=== PATIENT | female | born 1995 | race Caucasian/White ===

== ENCOUNTER 2019-02-25 16:16 | Emergency (ER) | payer SELFPAY ==
[2019-02-25 16:51] VITALS: RESP 18; O2SAT 98
--- NOTE | 2019-02-25 17:37 | C.PDOC ---
History Of Present Illness 23 year old female presents to the ED for evaluation. Patient states she has been noticing blood intermittently for three months after having bowel movement. Patient states symptoms occur once every other week. When she wipes, she noticed a few drops of bright red blood on the tissue paper. Patient states her last bowel movement was today and she did not notice any blood. The last time she noticed blood was four days ago. Patient denies hard stools, straining, constipation, urinary symptoms, nausea, vomiting, abdominal pain, or history of hemorrhoids. Chief Complaint (Nursing): GI Problem History Per: Patient History/Exam Limitations: no limitations Onset/Duration Of Symptoms: Days Current Symptoms Are (Timing): Still Present Additional History Per: Patient Past Medical History Reviewed: Historical Data, Nursing Documentation, Vital Signs Vital Signs: Last Vital Signs Temp 99.4 F 02/25/19 16:48 Pulse 84 02/25/19 16:48 Resp 18 02/25/19 16:48 BP 129/84 02/25/19 16:48 Pulse Ox 98 02/25/19 16:48 - Medical History PMH: No Chronic Diseases Surgical History: No Surg Hx Family History: States: Unknown Family Hx - Social History Hx Tobacco Use: Yes (1-2 cigarettes) Hx Alcohol Use: No Hx Substance Use: No - Immunization History Hx Tetanus Toxoid Vaccination: No Hx Influenza Vaccination: No Hx Pneumococcal Vaccination: No Review Of Systems Constitutional: Negative for: Fever, Chills Cardiovascular: Negative for: Chest Pain Respiratory: Negative for: Shortness of Breath Gastrointestinal: Positive for: Hematochezia. Negative for: Nausea, Vomiting, Abdominal Pain, Diarrhea Genitourinary: Negative for: Dysuria, Frequency, Hematuria, Vaginal Discharge, Vaginal Bleeding, Rash Skin: Negative for: Bruising Neurological: Negative for: Headache, Dizziness Physical Exam - Physical Exam Appears: Non-toxic, No Acute Distress Skin: Normal Color, Warm, Dry Head: Atraumatic, Normacephalic Eye(s): bilateral: Normal Inspection Oral Mucosa: Moist Chest: Symmetrical Cardiovascular: Rhythm Regular Respiratory: Normal Breath Sounds, No Wheezing Gastrointestinal/Abdominal: Soft, No Tenderness Rectal: Hemorrhoids (external, at 7 o'clock position ), No Other (erythema, gross edema, fissures or active bleeding ) Back: No CVA Tenderness Extremity: Normal ROM Extremity: Bilateral: Atraumatic, Normal Color And Temperature, Normal ROM Neurological/Psych: Oriented x3, Normal Speech, Normal Cognition, Normal Motor, Normal Sensation ED Course And Treatment O2 Sat by Pulse Oximetry: 98 (on RA ) Pulse Ox Interpretation: Normal Disposition Counseled Patient/Family Regarding: Diagnosis, Need For Followup, Rx Given - Disposition Referrals: Spencer Tafoya MD [Staff Provider] - Disposition: HOME/ ROUTINE Disposition Time: 17:34 Condition: STABLE Additional Instructions: Use preparation h daily at night ice packs, cold compress, witch valarie extract, and high fiber diet follow up in clinic if symptoms persist return to ED if symptoms worsen Prescriptions: Phenyleph/Mineral Oil/Petrolat [Preparation H 0.25%-3%] 1 oin TP HS #1 tube Instructions: Hemorrhoids (DC) Forms: [employer] (Korean) - Clinical Impression Clinical Impression: Hemorrhoid - PA / [employer] / Resident Statement MD/DO has reviewed & agrees with the documentation as recorded. - Scribe Statement The provider has reviewed the documentation as recorded by the Scribe (Nancy Carvalho) All medical record entries made by the Scribe were at my direction and personally dictated by me. I have reviewed the chart and agree that the record accurately reflects my personal performance of the history, physical exam, medical decision making, and the department course for this patient. I have also personally directed, reviewed, and agree with the discharge instructions and disposition.
[2019-02-25 17:42] VITALS: BP 110/76; PULSE 88; TEMP 99.1
== END 2019-02-25 17:46 | disposition home or self-care (01) ==
LOC: C.ER 16:16
DX: K64.4 Residual hemorrhoidal skin tags (principal); F17.210 Nicotine dependence, cigarettes, uncomplicated